=== PATIENT | male | born 1970 | race Caucasian/White ===

== ENCOUNTER 2024-08-28 16:50 | Observation (INO) | payer MEDICAID ==
[2024-08-28 17:12] LABS: BASOPHILS PERCENT AUTO 0.6 % (0.1-1.3); EOSINOPHILS ABSOLUTE AUTO 0.15 K/uL (0.00-0.40); EOSINOPHILS PERCENT AUTO 0.8 % (0.0-5.4); HEMATOCRIT 26.4 % (38.4-49.7); HEMOGLOBIN 8.6 g/dL (12.9-16.9); IMMATURE GRAN ABSOLUTE AUTO 0.36 K/uL (0.00-0.23); LYMPHOCYTES ABSOLUTE AUTO 2.07 K/uL (0.8-3.3); LYMPHOCYTES PERCENT AUTO 11.6 % (11.4-47.7); MEAN CORPUSCULAR HEMOGLOBIN 28.3 pg (31.6-35.5); MEAN CORPUSCULAR HGB CONC 32.6 g/dL (31.6-35.5); MEAN CORPUSCULAR VOLUME 86.8 fL (81.4-99.0); MONOCYTES ABSOLUTE AUTO 1.18 K/uL (0.20-0.90); MONOCYTES PERCENT AUTO 6.6 % (3.3-12.6); NEUTROPHILS ABSOLUTE AUTO 13.97 K/uL (1.0-7.6); NEUTROPHILS PERCENT AUTO 78.4 % (40.0-78.1); PLATELET COUNT,PLT 439 K/uL (130-375); RED BLOOD CELL COUNT 3.04 M/uL (4.14-5.76); WHITE BLOOD CELL COUNT,WBC 17.8 K/uL (3.2-11.0)
[2024-08-28 17:36] LABS: ANION GAP 16.8 mmol/L (5.0-14.0); C-REACTIVE PROTEIN 4.2 mg/dL (<0.50); CREATININE 2.8 mg/dL (0.8-1.3); EST CRCL DRUG DOSING (CG) 31.14 mL/min; POTASSIUM,K 3.8 mmol/L (3.6-5.2); TROPONIN I HIGH SENSITIVITY 10.1 pg/mL (<=60.3)
[2024-08-28 18:20] LABS: APPEARANCE,URINE SLIGHTLY CLOUDY (CLEAR); BILIRUBIN,URINE NEGATIVE (NEGATIVE); COLOR,URINE YELLOW (YELLOW); GLUCOSE,URINE NEGATIVE (NEGATIVE); KETONES,URINE NEGATIVE (NEGATIVE); LEUKOCYTE ESTERASE,URINE NEGATIVE (NEGATIVE); NITRITE,URINE NEGATIVE (NEGATIVE); OCCULT BLOOD,URINE NEGATIVE (NEGATIVE); PH,URINE 5.5 (5.0-8.0); PROTEIN,URINE 30 mg/dL (NEGATIVE); UROBILINOGEN,URINE 0.2 EU/dL (0.2-1.0)
[2024-08-28] MEDS: Lactated Ringers 1,000 ML IV SCH (18:23)
[2024-08-28 18:25] LABS: AMORPHOUS SEDIMENT,URINE FEW; BACTERIA,URINE FEW; EPITHELIAL CELLS,URINE NOT SEEN; MUCUS,URINE FEW; RBC,URINE 0-5 (0-5); WBC,URINE 0-5 (0-5)
[2024-08-28] MEDS ORDERED: Ondansetron 4 MG/2 ML SDV IV PRN (19:49)
[2024-08-28] MEDS ORDERED: Acetaminophen 325 MG Tab PO PRN (19:49)
[2024-08-28] MEDS ORDERED: Sennosides/Docusate Sodium 50-8.6 MG Tab PO PRN (19:49)
[2024-08-28] MEDS ORDERED: Nicotine 14 MG/24 Hr Patch TRDERM PRN (19:49)
[2024-08-28] MEDS ORDERED: Magnesium Hydroxide 400 MG/5 ML Susp 30 ML Cup PO PRN (19:49)
[2024-08-28] MEDS ORDERED: Albuterol 0.083% 2.5 MG/3 ML Neb Soln NEB PRN (19:49)
[2024-08-28] MEDS ORDERED: Ondansetron 4 MG Tab.DIS PO PRN (19:49)
[2024-08-28] MEDS: Montelukast 10 MG Tab PO SCH (20:46)
[2024-08-28] MEDS: Sodium Chloride 0.9% 1,000 ML IV SCH (20:46)
[2024-08-28] MEDS: Famotidine 20 MG Tab PO SCH (20:46)
[2024-08-28] MEDS: Gabapentin 100 MG Cap PO SCH (20:46)
[2024-08-28 22:56] LABS: BASOPHILS PERCENT AUTO 0.7 % (0.1-1.3); EOSINOPHILS ABSOLUTE AUTO 0.14 K/uL (0.00-0.40); HEMATOCRIT 23.9 % (38.4-49.7); HEMOGLOBIN 7.8 g/dL (12.9-16.9); IMMATURE GRAN ABSOLUTE AUTO 0.15 K/uL (0.00-0.23); IMMATURE GRAN PERCENT AUTO 1.1 % (0.0-0.7); LYMPHOCYTES ABSOLUTE AUTO 2.85 K/uL (0.8-3.3); LYMPHOCYTES PERCENT AUTO 20.5 % (11.4-47.7); MEAN CORPUSCULAR HEMOGLOBIN 28.1 pg (31.6-35.5); MEAN CORPUSCULAR HGB CONC 32.6 g/dL (31.6-35.5); MONOCYTES ABSOLUTE AUTO 1.21 K/uL (0.20-0.90); MONOCYTES PERCENT AUTO 8.7 % (3.3-12.6); NEUTROPHILS ABSOLUTE AUTO 9.42 K/uL (1.0-7.6); PLATELET COUNT,PLT 396 K/uL (130-375); RED BLOOD CELL COUNT 2.78 M/uL (4.14-5.76); WHITE BLOOD CELL COUNT,WBC 13.9 K/uL (3.2-11.0)
[2024-08-28 23:14] LABS: C-REACTIVE PROTEIN 3.92 mg/dL (<0.50); CALCIUM 8.6 mg/dL (8.5-10.1); CREATININE 2.2 mg/dL (0.8-1.3); EST CRCL DRUG DOSING (CG) 39.63 mL/min; POTASSIUM,K 3.7 mmol/L (3.6-5.2)
[2024-08-28 23:16] LABS: ANION GAP 15.7 mmol/L (5.0-14.0)
[2024-08-29 05:47] LABS: BASOPHILS ABSOLUTE AUTO 0.07 K/uL (0.00-0.10); BASOPHILS PERCENT AUTO 0.7 % (0.1-1.3); EOSINOPHILS ABSOLUTE AUTO 0.25 K/uL (0.00-0.40); EOSINOPHILS PERCENT AUTO 2.6 % (0.0-5.4); HEMATOCRIT 25.5 % (38.4-49.7); HEMOGLOBIN 8.3 g/dL (12.9-16.9); IMMATURE GRAN ABSOLUTE AUTO 0.09 K/uL (0.00-0.23); LYMPHOCYTES ABSOLUTE AUTO 2.34 K/uL (0.8-3.3); LYMPHOCYTES PERCENT AUTO 24.8 % (11.4-47.7); MEAN CORPUSCULAR HEMOGLOBIN 27.9 pg (31.6-35.5); MEAN CORPUSCULAR HGB CONC 32.5 g/dL (31.6-35.5); MEAN CORPUSCULAR VOLUME 85.9 fL (81.4-99.0); MONOCYTES ABSOLUTE AUTO 0.92 K/uL (0.20-0.90); MONOCYTES PERCENT AUTO 9.7 % (3.3-12.6); NEUTROPHILS ABSOLUTE AUTO 5.78 K/uL (1.0-7.6); NEUTROPHILS PERCENT AUTO 61.2 % (40.0-78.1); PLATELET COUNT,PLT 430 K/uL (130-375); RED BLOOD CELL COUNT 2.97 M/uL (4.14-5.76); WHITE BLOOD CELL COUNT,WBC 9.5 K/uL (3.2-11.0)
[2024-08-29 06:04] LABS: ANION GAP 15.6 mmol/L (5.0-14.0); C-REACTIVE PROTEIN 4.38 mg/dL (<0.50); CALCIUM 8.9 mg/dL (8.5-10.1); CREATININE 1.8 mg/dL (0.8-1.3); EST CRCL DRUG DOSING (CG) 48.44 mL/min; POTASSIUM,K 3.6 mmol/L (3.6-5.2)
[2024-08-29] MEDS: Pantoprazole 40 MG Tab.CR PO SCH (08:55)
[2024-08-29] MEDS: Formoterol/Mometasone 200-5 MCG 8.8 GM Inhaler IH SCH (08:55)
[2024-08-29] MEDS: Diltiazem 120 MG Cap.CD PO SCH (08:56)
[2024-08-29] MEDS: Hydrochlorothiazide 12.5 MG Cap PO SCH (08:56)
[2024-08-29] MEDS: Folic Acid 1 MG Tab PO SCH (08:56)
[2024-08-29] MEDS ORDERED: Non-Formulary Medication 1 Each (Omeprazole [Omeprazole] 40 MG Cap.Cr) PO SCH (09:00)
[2024-08-29] MEDS ORDERED: Lisinopril 10 MG Tab PO SCH (09:00)
== END 2024-08-29 09:35 | disposition home or self-care (01) ==
LOC: JP.ED 16:50 → JP.MS 19:09
PROVIDERS: ADMIT Nurse Practitioner; ATTEND Hospitalist
DX: N17.9 Acute kidney failure, unspecified (principal); I10 Essential (primary) hypertension; F17.210 Nicotine dependence, cigarettes, uncomplicated; Z79.899 Other long term (current) drug therapy; Z88.0 Allergy status to penicillin
CPT/HCPCS: 36415; 71046; 80048; 81001; 83605; 84484; 85025; 86140; 93005; 93010; 96360; 99223; 99239; 99285; A9270; G0378; J7030; J7120; 99222